=== PATIENT | female | born 1965 | race African-American/Black ===

== ENCOUNTER 2024-05-20 19:34 | Emergency (ER) | payer SELFPAY ==
[~2024-05-20] VITALS: Ht 170.2 cm; Wt 79.4 kg
[2024-05-20 19:48] VITALS: BP 163/90; PULSE 75; RESP 16; O2SAT 100
[2024-05-20 20:23] VITALS: TEMP 99
[2024-05-20] MEDS: ACETAMINOPHEN 325MG TABLET PO ONE (20:23)
== END 2024-05-21 00:39 | disposition left against medical advice (07) ==
LOC: ER 19:34
DX: R51.9 Headache, unspecified (principal); M25.532 Pain in left wrist
CPT/HCPCS: 73110; 99284